=== PATIENT | male | born 1945 | race Caucasian/White ===

== ENCOUNTER → 2018-04-04 | Outpatient (CLI) | payer MEDICARE, BC | LOC: COL.VAS 10:28 | DX: I35.0 Nonrheumatic aortic (valve) stenosis (principal); I34.0 Nonrheumatic mitral (valve) insufficiency; I07.1 Rheumatic tricuspid insufficiency ==

== ENCOUNTER → 2018-11-04 | Outpatient (CLI) | payer MEDICARE, BC | LOC: COL.RAD 07:43 | DX: I65.02 Occlusion and stenosis of left vertebral artery (principal); I65.22 Occlusion and stenosis of left carotid artery; H53.2 Diplopia | CPT/HCPCS: A9585 ==

== ENCOUNTER → 2019-12-22 | Outpatient (CLI) | payer MEDICARE, BC | LOC: COL.VAS 12-17 12:30 | DX: I35.0 Nonrheumatic aortic (valve) stenosis (principal); I51.7 Cardiomegaly ==

== ENCOUNTER → 2020-01-18 | Outpatient (CLI) | payer MEDICARE, BC | LOC: COL.VAS 13:56 | DX: I65.23 Occlusion and stenosis of bilateral carotid arteries (principal) ==

== ENCOUNTER → 2021-03-29 | Outpatient (CLI) | payer MEDICARE, BC | LOC: COL.VAS 12:05 | DX: I65.23 Occlusion and stenosis of bilateral carotid arteries (principal) ==

== ENCOUNTER → 2022-01-23 | Outpatient (CLI) | payer MEDICARE, BC | LOC: COL.VAS 09:00 | DX: M79.651 Pain in right thigh (principal); M79.652 Pain in left thigh ==

== ENCOUNTER → 2022-02-23 | Outpatient (CLI) | payer MEDICARE, BC | LOC: COL.RAD 12:19 | DX: M48.061 Spinal stenosis, lumbar region without neurogenic claudication (principal); M51.37 Other intervertebral disc degeneration, lumbosacral region; M51.26 Other intervertebral disc displacement, lumbar region; M47.816 Spondylosis without myelopathy or radiculopathy, lumbar region ==

== ENCOUNTER → 2023-09-26 | Outpatient (CLI) | payer MEDICARE, BC ==
[~2023-09-26] MED LIST: AMARYL1 MG PO; ASPIRIN E.C. 8181 MG PO; COZAAR100 MG PO; GLUCOPHAGE XR500 M1 PO; LIPITOR20 MG PO; MIRAPEX ER3 MG PO; TOPROL XL 50MG50 MG PO
== END ==
LOC: COL.RAD 13:30
DX: I65.23 Occlusion and stenosis of bilateral carotid arteries (principal)